=== PATIENT | male | born 1965 | race Caucasian/White ===

== ENCOUNTER → 2016-10-09 | Outpatient (CLI) | payer MEDICARE, BC ==
[~2016-10-09] MED LIST: ALLOPURINOL100 MG PO; BENAZEPRIL HCL20 MG PO; CALCITRIOL0.25 MCG PO; CARDIZEM CD240 MG PO; CARTIA XT300 MG PO; CATAPRES0.1 MG PO; DELFLEX IP; DELFLEX W/1.53000 ML PD; DIAZEPAM2 MG PO; DILTIAZEM 24HR300 MG PO; FLORASTOR250 MG PO; FUROSEMIDE20 MG PO; FUROSEMIDE80 MG PO; GENTAMICIN SULF30 G1 TP; LASIX20 MG PO; LASIX40 MG PO; LIDOCAINE700 MG TD; LIDODERM 5% P1 PATCH TD; MEDROL DOSEPAK4 MG PO; METRONIDAZOLE500 MG PO; NABI650T PO; NEPHRO-VITE,1 TABLET PO; ONDANSETRON HCL4 MG PO; OPANA ER7.5 MG PO; OXYCODONE HCL10 MG PO; OXYCODONE HCL5 MG PO; OXYCODONE5 MG PO; OXYCONTIN10 MG PO; OXYCONTIN15 MG PO; OXYMORPHONE HCL10 MG PO; OXYMORPHONE HCL30 MG PO; OXYMORPHONE HCL5 MG PO; RENVELA800 MG PO; SENSIPAR30 MG PO; SERTRALINE HCL50 MG PO; Sodium Bicarbonate PO; VELPHORO500 MG PO; VITAMIN D2000 INTUN PO; VITAMIN D22000 UNIT PO; VITAMIN D32000 UNI1 PO; XANAX0.125 MG PO; ZOFRAN4 MG PO; [UNRECOGNIZED DRUG - OTHER] IP
== END | disposition home or self-care (01) ==
LOC: CDC
DX: I51.7 Cardiomegaly (principal); Z01.810 Encounter for preprocedural cardiovascular examination
CPT/HCPCS: 93000

== ENCOUNTER 2016-10-10 06:35 | Day surgery (SDC) | payer OTHER, BC ==
[~2016-10-10] VITALS: Ht 177.8 cm; Wt 97.8 kg
[2016-10-10 07:16] VITALS: BP 122/65
[2016-10-10 08:38] LABS: HEMATOCRIT 29.1 % (38.0-50.0); MCH 31.2 PG (29.0-34.0); MCHC 33.3 G/DL (30.0-36.0); MCV 93.6 FL (86-99); MEAN PLAT.VOLUME 9.2 uM^3 (9.0-12.4); PLATELET COUNT 184 K/uL (156-360); RBC DIS.WIDTH-CV 13.6 % (11.8-14.6); RBC DIS.WIDTH-SD 46.1 % (39-53); RED BLOOD COUNT 3.11 M/uL (4.00-5.50); WHITE BLOOD COUNT 8.7 K/uL (4.1-10.2)
[2016-10-10 09:05] LABS: ANION GAP 11 MEQ/L (2-14); CHLORIDE 101 MEQ/L (99-109); GFR ESTIMATE (CALCULATED) 9 mL/min/; GLUCOSE 105 mg/dL (70-99); POTASSIUM 3.9 MEQ/L (3.7-5.4); SAMPLE HEMOLYSIS CHECK 0; SAMPLE ICTERIC CHECK 0; SAMPLE LIPEMIA CHECK 0; SODIUM 136 MEQ/L (136-147)
[2016-10-10 09:08] LABS: UREA NITROGEN (BUN) 103 mg/dL (9-23)
[2016-10-10 09:25] VITALS: BP 148/78
[2016-10-10 11:40] VITALS: BP 74/45
[2016-10-10 11:50] VITALS: BP 127/69
== END 2016-10-10 13:00 | disposition home or self-care (01) ==
LOC: SDC 06:35 → 2EASTP 06:37 → SDC 13:00 → 2EASTP 13:00 → SDC 16:10
PROVIDERS: Surgery
PROC: 0WWG43Z Revision of Infusion Device in Peritoneal Cavity, Percutaneous Endoscopic Approach (ICD-10-PCS; principal; 2016-10-10)
DX: T85.611A Breakdown (mechanical) of intraperitoneal dialysis catheter, initial encounter (principal); Y83.1 Surgical operation with implant of artificial internal device as the cause of abnormal reaction of the patient, or of later complication, without mention of misadventure at the time of the procedure; I12.0 Hypertensive chronic kidney disease with stage 5 chronic kidney disease or end stage renal disease; N18.6 End stage renal disease; Z99.2 Dependence on renal dialysis; F17.200 Nicotine dependence, unspecified, uncomplicated; M19.90 Unspecified osteoarthritis, unspecified site; Z96.659 Presence of unspecified artificial knee joint
CPT/HCPCS: 80048; 85027; C1750; G0378; J0131; J0330; J0690; J1170; J2250; J2405; J3010; J7040

== ENCOUNTER 2017-07-22 10:43 | Inpatient (IN) | payer OTHER, BC ==
[~2017-07-22] VITALS: Ht 177.8 cm; Wt 99.0 kg
[~2017-07-22 10:43] MED LIST changes: -DELFLEX IP; -GENTAMICIN SULF30 G1 TP; +GENTAMICIN SULF30 GM TP; -OXYCONTIN15 MG PO; -[UNRECOGNIZED DRUG - OTHER] IP; +[UNRECOGNIZED DRUG - OTHER] PD
[2017-07-22 11:49] LABS: BASOPHIL (%) 0.1 % (0-1); EOSINOPHIL (%) 0.9 % (0-5); EOSINOPHIL COUNT 0.1 K/uL (0-0.3); HEMATOCRIT 21.7 % (38.0-50.0); HEMOGLOBIN 7.6 G/DL (12.5-16.6); IMMATURE GRANULOCYTE (%) 1.1 % (0.0-0.7); LYMPHOCYTE (%) 8.5 % (15-42); LYMPHOCYTE COUNT 0.7 K/uL (1.0-2.8); MCH 33.5 PG (29.0-34.0); MCV 95.6 FL (86-99); MONOCYTE (%) 8.3 % (3-12); MONOCYTE COUNT 0.7 K/uL (0-0.8); NEUTROPHIL (%) 81.1 % (45-76); NEUTROPHIL COUNT 6.6 K/uL (1.8-6.4); PLATELET COUNT 195 K/uL (156-360); RBC DIS.WIDTH-CV 13.7 % (11.8-14.6); RBC DIS.WIDTH-SD 47.3 % (39-53); RED BLOOD COUNT 2.27 M/uL (4.00-5.50); WHITE BLOOD COUNT 8.1 K/uL (4.1-10.2)
[2017-07-22 11:54] LABS: INTER. NORMALIZED RATIO 1.1
[2017-07-22 11:57] LABS: PTT 24.3 SEC (25-37)
[2017-07-22 12:00] LABS: ALBUMIN 3.4 g/dL (3.2-4.8); CHLORIDE 97 mEq/L (99-109); POTASSIUM 4.3 mEq/L (3.7-5.4); SODIUM 130 mEq/L (136-147)
[2017-07-22 12:01] LABS: MAGNESIUM 2.4 mg/dL (1.3-2.7)
[2017-07-22 12:02] LABS: GLUCOSE 136 mg/dL (70-99); TOTAL PROTEIN 5.1 g/dL (6.4-8.3)
[2017-07-22 12:04] LABS: TOTAL BILIRUBIN 0.3 mg/dL (0.0-1.0)
[2017-07-22 12:06] LABS: ALKALINE PHOSPHATASE 122 IU/L (3-129); CREATININE 7.2 mg/dL (0.6-1.3); GFR ESTIMATE (CALCULATED) 9 mL/min/ (58.99-99999)
[2017-07-22 12:08] LABS: AST (GOT) 23 IU/L (2-34)
[2017-07-22 12:09] LABS: ALT (GPT) 43 IU/L (3-49); CREATINE KINASE 236 IU/L (1-294); LIPASE 25 U/L (1.0-51.0); TOTAL CK 236 IU/L (1-294); TROP-I INTERPRETATION NEGATIVE; TROPONIN-I 0.08 ng/mL (0.0-0.30); UREA NITROGEN (BUN) 163 mg/dL (9-23)
[2017-07-22 12:21] LABS: CK-MB 5.7 ng/mL (0.0-4.9); CKMB RELATIVE INDEX 2.4 (0.0-3.9)
[2017-07-22] MEDS ORDERED: NEPHRO-VITE,1 TABLET PO (12:21)
[2017-07-22] MEDS ORDERED: VELPHORO500 MG PO (12:23)
[2017-07-22 17:30] VITALS: BP 130/60
[2017-07-22 18:17] LABS: IRON 194 MCG/DL (35-150); TRANSFERRIN (TIBC) 168.5 mg/dL (215-380)
[2017-07-22 18:17] LABS: HEMOGLOBIN 6.3 G/DL (12.5-16.6); MCV 97.4 FL (86-99)
[2017-07-22 18:18] LABS: TRANSFERRIN SATUR. 115 % (20-55)
[2017-07-22 20:06] VITALS: BP 106/62
[2017-07-22 21:11] VITALS: BP 115/65
[2017-07-22 21:31] VITALS: BP 107/65
[2017-07-22 22:26] VITALS: BP 108/68
[2017-07-23] VITALS (8 sets, daily range): BP systolic 89–119; BP diastolic 51–77
[2017-07-23 01:11] LABS: HEMATOCRIT 20.9 % (38.0-50.0); HEMOGLOBIN 7.2 G/DL (12.5-16.6); MCV 93.7 FL (86-99)
[2017-07-23 09:13] LABS: HEMATOCRIT 20.5 % (38.0-50.0)
[2017-07-23 09:21] LABS: HEMOGLOBIN 6.9 G/DL (12.5-16.6)
[2017-07-23 09:46] LABS: ALBUMIN 2.8 G/DL (3.2-4.8); ALKALINE PHOSPHATASE 86 IU/L (3-129); ALT (GPT) 28 IU/L (3-49); AST (GOT) 16 IU/L (2-34); CHLORIDE 102 MEQ/L (99-109); CREATININE 6.8 MG/DL (0.6-1.3); GFR ESTIMATE (CALCULATED) 9 mL/min/ (58.99-99999); PHOSPHORUS 5.9 mg/dL (2.5-4.9); POTASSIUM 3.7 MEQ/L (3.7-5.4); TOTAL BILIRUBIN 0.3 MG/DL (0.0-1.0); TOTAL PROTEIN 4.5 G/DL (6.4-8.3)
[2017-07-23 09:52] LABS: GLUCOSE 97 mg/dL (70-99); SODIUM 138 MEQ/L (136-147); UREA NITROGEN (BUN) 148 mg/dL (9-23)
[2017-07-23 10:27] LABS: APPEARANCE CLEAR ((CLEAR)); BILIRUBIN NEGATIVE; BLOOD SMALL; COLOR STRAW ((YELLOW)); GLUCOSE (STRIP) 50; KETONES NEGATIVE; LEUKOCYTES NEGATIVE; NITRITE NEGATIVE; PROTEIN (STRIP) NEGATIVE; SPECIFIC GRAVITY 1.006 (1.000-1.030); UROBILINOGEN 0.2 MG/DL (0.2-1.0)
[2017-07-23 10:30] LABS: BACTERIA RARE /HPF; EPITHELIAL CELLS RARE /HPF; MUCUS TRACE /LPF; RED BLOOD CELLS 0-5 /HPF (0-5); UCUL ADDED? NO; WHITE BLOOD CELLS NONE SEEN /HPF (0-5)
[2017-07-23 14:45] LABS: HEMATOCRIT 22.8 % (38.0-50.0); HEMOGLOBIN 7.6 G/DL (12.5-16.6); MCH 31.7 PG (29.0-34.0); MCHC 33.3 G/DL (30.0-36.0); PLATELET COUNT 161 K/uL (156-360); RBC DIS.WIDTH-CV 15.5 % (11.8-14.6); RBC DIS.WIDTH-SD 53.9 % (39-53); WHITE BLOOD COUNT 6.8 K/uL (4.1-10.2)
[2017-07-23 18:19] LABS: HEMATOCRIT 22.9 % (38.0-50.0); HEMOGLOBIN 7.8 G/DL (12.5-16.6); MCV 94.2 FL (86-99)
[2017-07-24] VITALS (7 sets, daily range): BP systolic 109–129; BP diastolic 57–74
[2017-07-24 00:41] LABS: HEMATOCRIT 22.4 % (38.0-50.0); HEMOGLOBIN 7.8 G/DL (12.5-16.6); MCV 92.9 FL (86-99)
[2017-07-24 06:36] LABS: HEMATOCRIT 21.7 % (38.0-50.0); HEMOGLOBIN 7.3 G/DL (12.5-16.6); MCH 31.3 PG (29.0-34.0); MCHC 33.6 G/DL (30.0-36.0); MCV 93.1 FL (86-99); PLATELET COUNT 150 K/uL (156-360); RBC DIS.WIDTH-CV 15.9 % (11.8-14.6); RBC DIS.WIDTH-SD 53.6 % (39-53); RED BLOOD COUNT 2.33 M/uL (4.00-5.50); WHITE BLOOD COUNT 7.8 K/uL (4.1-10.2)
[2017-07-24 07:24] LABS: ALBUMIN 2.9 G/DL (3.2-4.8); CHLORIDE 104 MEQ/L (99-109); CREATININE 6.2 MG/DL (0.6-1.3); GFR ESTIMATE (CALCULATED) 10 mL/min/ (58.99-99999); GLUCOSE 101 mg/dL (70-99); PHOSPHORUS 5.7 mg/dL (2.5-4.9); POTASSIUM 3.4 MEQ/L (3.7-5.4); SODIUM 138 MEQ/L (136-147)
[2017-07-24 07:43] LABS: UREA NITROGEN (BUN) 129 mg/dL (9-23)
[2017-07-24 12:08] LABS: HEMATOCRIT 23.1 % (38.0-50.0); HEMOGLOBIN 7.8 G/DL (12.5-16.6); MCV 93.1 FL (86-99)
[2017-07-24 18:32] LABS: HEMATOCRIT 25.7 % (38.0-50.0); HEMOGLOBIN 8.7 G/DL (12.5-16.6); MCV 91.8 FL (86-99)
[2017-07-25] VITALS (23 sets, daily range): BP systolic 89–155; BP diastolic 52–95
[2017-07-25 00:36] LABS: HEMOGLOBIN 8.1 G/DL (12.5-16.6)
[2017-07-25 06:49] LABS: HEMATOCRIT 21.8 % (38.0-50.0); HEMOGLOBIN 7.4 G/DL (12.5-16.6); MCH 31.9 PG (29.0-34.0); MCHC 33.9 G/DL (30.0-36.0); PLATELET COUNT 135 K/uL (156-360); RBC DIS.WIDTH-CV 16.5 % (11.8-14.6); RBC DIS.WIDTH-SD 55.8 % (39-53); RED BLOOD COUNT 2.32 M/uL (4.00-5.50); WHITE BLOOD COUNT 8.4 K/uL (4.1-10.2)
[2017-07-25 07:41] LABS: ALBUMIN 2.8 G/DL (3.2-4.8); CHLORIDE 102 MEQ/L (99-109); CREATININE 5.7 MG/DL (0.6-1.3); GFR ESTIMATE (CALCULATED) 11 mL/min/ (58.99-99999); GLUCOSE 117 mg/dL (70-99); PHOSPHORUS 4.7 mg/dL (2.5-4.9); POTASSIUM 3.7 MEQ/L (3.7-5.4); SODIUM 138 MEQ/L (136-147)
[2017-07-25 07:43] LABS: UREA NITROGEN (BUN) 108 mg/dL (9-23)
[2017-07-25 12:04] LABS: HEMATOCRIT 19.5 % (38.0-50.0); MCV 92.4 FL (86-99)
[2017-07-25 12:05] LABS: HEMOGLOBIN 6.5 G/DL (12.5-16.6)
[2017-07-25 20:21] LABS: HEMATOCRIT 22.9 % (38.0-50.0); HEMOGLOBIN 7.8 G/DL (12.5-16.6); MCV 93.5 FL (86-99)
[2017-07-26] VITALS (25 sets, daily range): BP systolic 0–163; BP diastolic 0–121
[2017-07-26 02:11] LABS: HEMATOCRIT 26.1 % (38.0-50.0); HEMOGLOBIN 9.1 G/DL (12.5-16.6); MCH 31.6 PG (29.0-34.0); MCHC 34.9 G/DL (30.0-36.0); MCV 90.6 FL (86-99); PLATELET COUNT 131 K/uL (156-360); RBC DIS.WIDTH-CV 14.9 % (11.8-14.6); RBC DIS.WIDTH-SD 48.8 % (39-53); WHITE BLOOD COUNT 7.6 K/uL (4.1-10.2)
[2017-07-26 02:14] LABS: RED BLOOD COUNT 2.88 M/uL (4.00-5.50)
[2017-07-26 02:18] LABS: FIBRINOGEN 443 mg/dL (150-450)
[2017-07-26 02:20] LABS: PTT 25.1 SEC (25-37)
[2017-07-26 05:18] LABS: BASOPHIL (%) 0.3 % (0-1); EOSINOPHIL (%) 5.8 % (0-5); EOSINOPHIL COUNT 0.4 K/uL (0-0.3); HEMATOCRIT 26.5 % (38.0-50.0); HEMOGLOBIN 9.1 G/DL (12.5-16.6); IMMATURE GRANULOCYTE (%) 1.9 % (0.0-0.7); LYMPHOCYTE (%) 16.7 % (15-42); LYMPHOCYTE COUNT 1.2 K/uL (1.0-2.8); MCH 31.2 PG (29.0-34.0); MCHC 34.3 G/DL (30.0-36.0); MCV 90.8 FL (86-99); MONOCYTE (%) 8.4 % (3-12); MONOCYTE COUNT 0.6 K/uL (0-0.8); NEUTROPHIL (%) 66.9 % (45-76); PLATELET COUNT 119 K/uL (156-360); RBC DIS.WIDTH-CV 15.2 % (11.8-14.6); RBC DIS.WIDTH-SD 49.3 % (39-53); RED BLOOD COUNT 2.92 M/uL (4.00-5.50); WHITE BLOOD COUNT 7.4 K/uL (4.1-10.2)
[2017-07-26 05:57] LABS: ALBUMIN 2.6 G/DL (3.2-4.8); CHLORIDE 105 MEQ/L (99-109); CREATININE 5.5 MG/DL (0.6-1.3); GFR ESTIMATE (CALCULATED) 12 mL/min/ (58.99-99999); GLUCOSE 90 mg/dL (70-99); PHOSPHORUS 4.8 mg/dL (2.5-4.9); SODIUM 139 MEQ/L (136-147)
[2017-07-26 05:58] LABS: UREA NITROGEN (BUN) 107 mg/dL (9-23)
[2017-07-26 12:32] LABS: HEMATOCRIT 30.4 % (38.0-50.0); HEMOGLOBIN 10.3 G/DL (12.5-16.6); MCV 91.6 FL (86-99)
[2017-07-26 18:45] LABS: HEMATOCRIT 28.2 % (38.0-50.0); HEMOGLOBIN 9.6 G/DL (12.5-16.6); MCV 92.5 FL (86-99)
[2017-07-27] VITALS (17 sets, daily range): BP systolic 120–174; BP diastolic 68–98
[2017-07-27 01:07] LABS: HEMATOCRIT 27.4 % (38.0-50.0); HEMOGLOBIN 9.7 G/DL (12.5-16.6); MCH 32.3 PG (29.0-34.0); MCHC 35.4 G/DL (30.0-36.0); MCV 91.3 FL (86-99); PLATELET COUNT 151 K/uL (156-360); RBC DIS.WIDTH-CV 15.4 % (11.8-14.6); WHITE BLOOD COUNT 8.5 K/uL (4.1-10.2)
[2017-07-27 05:13] LABS: BASOPHIL (%) 0.1 % (0-1); EOSINOPHIL (%) 4.8 % (0-5); EOSINOPHIL COUNT 0.4 K/uL (0-0.3); HEMATOCRIT 27.2 % (38.0-50.0); HEMOGLOBIN 9.3 G/DL (12.5-16.6); IMMATURE GRANULOCYTE (%) 1.3 % (0.0-0.7); LYMPHOCYTE (%) 13.8 % (15-42); LYMPHOCYTE COUNT 1.1 K/uL (1.0-2.8); MCH 31.8 PG (29.0-34.0); MCHC 34.2 G/DL (30.0-36.0); MCV 93.2 FL (86-99); MONOCYTE (%) 7.6 % (3-12); MONOCYTE COUNT 0.6 K/uL (0-0.8); NEUTROPHIL (%) 72.4 % (45-76); NEUTROPHIL COUNT 5.6 K/uL (1.8-6.4); PLATELET COUNT 146 K/uL (156-360); RBC DIS.WIDTH-CV 15.5 % (11.8-14.6); RBC DIS.WIDTH-SD 51.2 % (39-53); RED BLOOD COUNT 2.92 M/uL (4.00-5.50); WHITE BLOOD COUNT 7.8 K/uL (4.1-10.2)
[2017-07-27 05:40] LABS: ALBUMIN 2.8 G/DL (3.2-4.8); CHLORIDE 106 MEQ/L (99-109); CREATININE 5.3 MG/DL (0.6-1.3); GFR ESTIMATE (CALCULATED) 12 mL/min/ (58.99-99999); GLUCOSE 96 mg/dL (70-99); PHOSPHORUS 4.6 mg/dL (2.5-4.9); POTASSIUM 3.6 MEQ/L (3.7-5.4); SODIUM 140 MEQ/L (136-147); UREA NITROGEN (BUN) 90 mg/dL (9-23)
[2017-07-27 05:41] LABS: CHLORIDE 108 MEQ/L (99-109); CREATININE 5.3 MG/DL (0.6-1.3); GFR ESTIMATE (CALCULATED) 12 mL/min/ (58.99-99999); GLUCOSE 96 mg/dL (70-99); POTASSIUM 3.6 MEQ/L (3.7-5.4); SODIUM 141 MEQ/L (136-147); UREA NITROGEN (BUN) 90 mg/dL (9-23)
[2017-07-27 12:16] LABS: HEMATOCRIT 29.1 % (38.0-50.0); HEMOGLOBIN 9.8 G/DL (12.5-16.6); MCV 92.7 FL (86-99)
[2017-07-28] VITALS: BP 125/60
[2017-07-28 02:00] VITALS: BP 123/65
[2017-07-28 04:00] VITALS: BP 162/94
[2017-07-28 06:00] VITALS: BP 116/61
[2017-07-28 06:01] LABS: BASOPHIL (%) 0.2 % (0-1); EOSINOPHIL (%) 3.1 % (0-5); EOSINOPHIL COUNT 0.3 K/uL (0-0.3); HEMATOCRIT 26.9 % (38.0-50.0); IMMATURE GRANULOCYTE (%) 1.3 % (0.0-0.7); LYMPHOCYTE (%) 9.7 % (15-42); MCH 31.1 PG (29.0-34.0); MCHC 33.5 G/DL (30.0-36.0); MCV 93.1 FL (86-99); MONOCYTE (%) 7.1 % (3-12); MONOCYTE COUNT 0.8 K/uL (0-0.8); NEUTROPHIL (%) 78.6 % (45-76); NEUTROPHIL COUNT 8.3 K/uL (1.8-6.4); PLATELET COUNT 163 K/uL (156-360); RBC DIS.WIDTH-CV 15.2 % (11.8-14.6); RBC DIS.WIDTH-SD 50.4 % (39-53); RED BLOOD COUNT 2.89 M/uL (4.00-5.50); WHITE BLOOD COUNT 10.6 K/uL (4.1-10.2)
[2017-07-28 06:28] LABS: CHLORIDE 107 MEQ/L (99-109); CREATININE 5.6 MG/DL (0.6-1.3); GFR ESTIMATE (CALCULATED) 11 mL/min/ (58.99-99999); GLUCOSE 102 mg/dL (70-99); POTASSIUM 3.8 MEQ/L (3.7-5.4); SODIUM 140 MEQ/L (136-147); UREA NITROGEN (BUN) 78 mg/dL (9-23)
[2017-07-28] MEDS ORDERED: PANTOPRAZOLE SO40 MG PO (10:15)
[2017-07-28] MEDS ORDERED: ULTRACET1 TABLET PO ×2 (10:16→10:21)
== END 2017-07-28 11:43 | disposition home or self-care (01) | DRG 377 ==
LOC: EME 10:43 → EDOF 14:20 → 5EAST 14:20 → 4WEST 14:20 → ENRESERV 14:21 → EDOF 14:50 → ENRESERV 14:54 → 5EAST 16:17 → ENRESERV 07-25 14:50 → 4WEST 07-25 15:59 → ENRESERV 07-27 17:32 → 4WEST 07-27 17:32
PROVIDERS: Emergency Medicine; Hospitalist; Internal Medicine; Internal Medicine Critical Care Medicine; Internal Medicine Gastroenterology; Physician Assistant Medical; Surgery
DX: K25.4 Chronic or unspecified gastric ulcer with hemorrhage (principal); K57.31 Diverticulosis of large intestine without perforation or abscess with bleeding; D62 Acute posthemorrhagic anemia; E87.1 Hypo-osmolality and hyponatremia; E87.2 Acidosis; J20.8 Acute bronchitis due to other specified organisms; I12.0 Hypertensive chronic kidney disease with stage 5 chronic kidney disease or end stage renal disease; N18.6 End stage renal disease; D63.1 Anemia in chronic kidney disease; D69.6 Thrombocytopenia, unspecified; E83.39 Other disorders of phosphorus metabolism; M10.9 Gout, unspecified; E03.9 Hypothyroidism, unspecified; L28.1 Prurigo nodularis; N25.81 Secondary hyperparathyroidism of renal origin; E55.9 Vitamin D deficiency, unspecified; F32.9 Major depressive disorder, single episode, unspecified; F41.9 Anxiety disorder, unspecified; M87.9 Osteonecrosis, unspecified; K29.80 Duodenitis without bleeding; D17.5 Benign lipomatous neoplasm of intra-abdominal organs; K21.9 Gastro-esophageal reflux disease without esophagitis; K64.8 Other hemorrhoids; K63.5 Polyp of colon; I95.9 Hypotension, unspecified; F17.200 Nicotine dependence, unspecified, uncomplicated; Z96.642 Presence of left artificial hip joint; Z88.6 Allergy status to analgesic agent; Z99.2 Dependence on renal dialysis; Q78.0 Osteogenesis imperfecta; Z76.82 Awaiting organ transplant status
CPT/HCPCS: 71045; 80048; 80048 91; 80053; 80069; 81003; 82550; 82553; 83540; 83605; 83690; 83735; 83880; 84100; 84466; 84484; 85014; 85018; 85025; 85027; 85384; 85610; 85730; 86850; 86900; 86901; 86920; 87040; 87641; 88305; 88342 TC; 93005; 99281; 99285; C9113; J0881; J2250; J2405; J3010; J7030; J7050; P9016; P9040; S0028

== ENCOUNTER 2017-08-24 19:16 | Inpatient (IN) | payer OTHER, BC ==
[~2017-08-24] VITALS: Ht 165.1 cm; Wt 95.4 kg
[~2017-08-24 19:16] MED LIST changes: +PANTOPRAZOLE SO40 MG PO; +ULTRACET1 TABLET PO
[2017-08-24 19:48] LABS: HEMATOCRIT 25.8 % (38.0-50.0); HEMOGLOBIN 8.6 G/DL (12.5-16.6); MCH 31.2 PG (29.0-34.0); MCHC 33.3 G/DL (30.0-36.0); MCV 93.5 FL (86-99); PLATELET COUNT 294 K/uL (156-360); RBC DIS.WIDTH-CV 14.5 % (11.8-14.6); RBC DIS.WIDTH-SD 49.8 % (39-53); RED BLOOD COUNT 2.76 M/uL (4.00-5.50)
[2017-08-24 19:57] LABS: CHLORIDE 99 mEq/L (99-109); POTASSIUM 4.3 mEq/L (3.7-5.4); SODIUM 136 mEq/L (136-147)
[2017-08-24 19:58] LABS: GLUCOSE 106 mg/dL (70-99)
[2017-08-24 20:02] LABS: CREATININE 6.1 mg/dL (0.6-1.3); GFR ESTIMATE (CALCULATED) 10 mL/min/ (58.99-99999)
[2017-08-24 20:03] LABS: UREA NITROGEN (BUN) 99 mg/dL (9-23)
[2017-08-24 20:18] LABS: TROP-I INTERPRETATION NEGATIVE; TROPONIN-I 0.03 ng/mL (0.0-0.30)
[2017-08-24] MEDS ORDERED: [UNRECOGNIZED DRUG - OTHER] IP (21:41)
[2017-08-24] MEDS ORDERED: PROTONIX40 MG PO (21:45)
[2017-08-24] MEDS ORDERED: MIRALAX255 GM PO (21:46)
[2017-08-24] MEDS ORDERED: KRATOM PO (21:48)
[2017-08-25 00:29] LABS: BASOPHIL (%) 0.2 % (0-1); EOSINOPHIL (%) 2.5 % (0-5); EOSINOPHIL COUNT 0.4 K/uL (0-0.3); HEMATOCRIT 24.4 % (38.0-50.0); HEMOGLOBIN 8.1 G/DL (12.5-16.6); IMMATURE GRANULOCYTE (%) 1.2 % (0.0-0.7); LYMPHOCYTE COUNT 1.1 K/uL (1.0-2.8); MCH 30.8 PG (29.0-34.0); MCHC 33.2 G/DL (30.0-36.0); MCV 92.8 FL (86-99); NEUTROPHIL (%) 83.1 % (45-76); NEUTROPHIL COUNT 13.1 K/uL (1.8-6.4); PLATELET COUNT 252 K/uL (156-360); RBC DIS.WIDTH-CV 14.3 % (11.8-14.6); RBC DIS.WIDTH-SD 48.1 % (39-53); RED BLOOD COUNT 2.63 M/uL (4.00-5.50); WHITE BLOOD COUNT 15.8 K/uL (4.1-10.2)
[2017-08-25 00:42] LABS: ALBUMIN 3.1 g/dL (3.2-4.8)
[2017-08-25 00:43] LABS: CHLORIDE 99 mEq/L (99-109); POTASSIUM 4.6 mEq/L (3.7-5.4); SODIUM 134 mEq/L (136-147)
[2017-08-25 00:45] LABS: GLUCOSE 95 mg/dL (70-99); PTT 27.1 SEC (25-37); TOTAL PROTEIN 6.2 g/dL (6.4-8.3)
[2017-08-25 00:47] LABS: TOTAL BILIRUBIN 0.3 mg/dL (0.0-1.0)
[2017-08-25 00:48] LABS: ALKALINE PHOSPHATASE 141 IU/L (3-129)
[2017-08-25 00:49] LABS: CREATININE 5.9 mg/dL (0.6-1.3); GFR ESTIMATE (CALCULATED) 11 mL/min/ (58.99-99999)
[2017-08-25 00:50] LABS: AST (GOT) 13 IU/L (2-34); UREA NITROGEN (BUN) 102 mg/dL (9-23)
[2017-08-25 00:51] LABS: ALT (GPT) 15 IU/L (3-49)
[2017-08-25 00:52] LABS: LIPASE 18 U/L (1.0-51.0)
[2017-08-25 01:10] VITALS: BP 154/85
[2017-08-25 03:26] LABS: ERTH.SED.RATE 52 MM/HR (0-20)
[2017-08-25 05:00] VITALS: BP 121/75
[2017-08-25 06:03] LABS: TROP-I INTERPRETATION NEGATIVE; TROPONIN-I 0.04 ng/mL (0.0-0.30)
[2017-08-25 06:08] LABS: HDL CHOLESTEROL 34 MG/DL (Desirable>=40); LDL CHOLESTEROL 103 mg/dL (Desirable<100); NON-HDL CHOLESTEROL 125 mg/dL (Desirable<160); TOTAL CHOLESTEROL 159 mg/dL (Desirable<200); TRIGLYCERIDES 112 MG/DL (Normal: <150)
[2017-08-25 09:24] VITALS: BP 106/71
[2017-08-25 12:23] VITALS: BP 136/75
[2017-08-25 12:45] LABS: TROP-I INTERPRETATION NEGATIVE; TROPONIN-I 0.05 ng/mL (0.0-0.30)
[2017-08-25 15:12] LABS: IRON 26 MCG/DL (35-150); TRANSFERRIN (TIBC) 165.1 mg/dL (215-380); TRANSFERRIN SATUR. 16 % (20-55)
[2017-08-25 16:02] LABS: FERRITIN 543 NG/ML (22-322)
[2017-08-25 19:45] VITALS: BP 127/71
[2017-08-26 00:20] VITALS: BP 103/62
[2017-08-26 05:21] VITALS: BP 107/63
[2017-08-26 05:27] LABS: HEMATOCRIT 24.4 % (38.0-50.0); HEMOGLOBIN 7.9 G/DL (12.5-16.6); MCH 30.4 PG (29.0-34.0); MCHC 32.4 G/DL (30.0-36.0); MCV 93.8 FL (86-99); PLATELET COUNT 292 K/uL (156-360); RBC DIS.WIDTH-CV 14.5 % (11.8-14.6); RBC DIS.WIDTH-SD 49.2 % (39-53); WHITE BLOOD COUNT 12.2 K/uL (4.1-10.2)
[2017-08-26 05:48] LABS: ALBUMIN 2.9 G/DL (3.2-4.8); ALKALINE PHOSPHATASE 120 IU/L (3-129); ALT (GPT) 16 IU/L (3-49); AST (GOT) 19 IU/L (2-34); CHLORIDE 97 MEQ/L (99-109); GFR ESTIMATE (CALCULATED) 11 mL/min/ (58.99-99999); GLUCOSE 95 mg/dL (70-99); SODIUM 135 MEQ/L (136-147); TOTAL BILIRUBIN 0.3 MG/DL (0.0-1.0); TOTAL PROTEIN 5.5 G/DL (6.4-8.3); UREA NITROGEN (BUN) 83 mg/dL (9-23)
[2017-08-26 07:40] VITALS: BP 104/66
[2017-08-26 12:32] VITALS: BP 124/77
[2017-08-26 18:35] VITALS: BP 123/73
[2017-08-26 20:09] VITALS: BP 122/76
[2017-08-27 00:11] VITALS: BP 129/68
[2017-08-27 07:02] VITALS: BP 132/76
[2017-08-27 11:45] VITALS: BP 128/80
[2017-08-27] MEDS ORDERED: LOPRESSOR25 MG PO (12:02)
== END 2017-08-27 14:58 | disposition home or self-care (01) | DRG 444 ==
LOC: EME 19:16 → 4EAST 23:54 → EDOF 23:54 → ENRESERV 08-25 00:01 → 4EAST 08-25 01:11 → ENRESERV 08-26 20:15 → 5EAST 08-26 23:11 → ENPENDDIS 08-27 → 5EAST 08-27 14:58
PROVIDERS: Hospitalist; Physician Assistant Medical
DX: K83.1 Obstruction of bile duct (principal); K29.80 Duodenitis without bleeding; K83.8 Other specified diseases of biliary tract; R65.10 Systemic inflammatory response syndrome (SIRS) of non-infectious origin without acute organ dysfunction; E87.2 Acidosis; I12.0 Hypertensive chronic kidney disease with stage 5 chronic kidney disease or end stage renal disease; N18.6 End stage renal disease; Z99.2 Dependence on renal dialysis; Z76.82 Awaiting organ transplant status; D17.5 Benign lipomatous neoplasm of intra-abdominal organs; K57.31 Diverticulosis of large intestine without perforation or abscess with bleeding; K25.9 Gastric ulcer, unspecified as acute or chronic, without hemorrhage or perforation; K64.8 Other hemorrhoids; N25.81 Secondary hyperparathyroidism of renal origin; E55.9 Vitamin D deficiency, unspecified; R18.8 Other ascites; I71.2 Thoracic aortic aneurysm, without rupture; Q78.0 Osteogenesis imperfecta; M87.012 Idiopathic aseptic necrosis of left shoulder; M87.011 Idiopathic aseptic necrosis of right shoulder; M87.051 Idiopathic aseptic necrosis of right femur; M25.551 Pain in right hip; D63.1 Anemia in chronic kidney disease; E83.119 Hemochromatosis, unspecified; E03.9 Hypothyroidism, unspecified; E78.5 Hyperlipidemia, unspecified; K21.9 Gastro-esophageal reflux disease without esophagitis; L28.1 Prurigo nodularis; M10.9 Gout, unspecified; R97.20 Elevated prostate specific antigen [PSA]; M19.90 Unspecified osteoarthritis, unspecified site; N40.0 Benign prostatic hyperplasia without lower urinary tract symptoms; F32.9 Major depressive disorder, single episode, unspecified; F41.9 Anxiety disorder, unspecified; Z82.49 Family history of ischemic heart disease and other diseases of the circulatory system; Z96.642 Presence of left artificial hip joint; E66.9 Obesity, unspecified; Z87.891 Personal history of nicotine dependence; Z68.34 Body mass index [BMI] 34.0-34.9, adult
CPT/HCPCS: 71046; 71275; 74174; 74181; 74330; 80048; 80053; 80061; 81003; 82728; 83540; 83605; 83690; 84466; 84484; 85025; 85027; 85610; 85652; 85730; 87081; 88108; 88305; 93005; 99281; 99285; C1757; J1100; J1644; J2270; J2405; J2543; J2710; J3010; J7050; J7120

== ENCOUNTER 2017-09-04 21:02 | Inpatient (IN) | payer OTHER, BC ==
[~2017-09-04] VITALS: Ht 177.8 cm; Wt 99.3 kg
[~2017-09-04 21:02] MED LIST changes: +KRATOM PO; +LOPRESSOR25 MG PO; +MIRALAX255 GM PO; +PROTONIX40 MG PO; +[UNRECOGNIZED DRUG - OTHER] IP
[2017-09-04 21:54] LABS: BASOPHIL (%) 0.3 % (0-1); EOSINOPHIL (%) 3.1 % (0-5); EOSINOPHIL COUNT 0.5 K/uL (0-0.3); HEMATOCRIT 24.9 % (38.0-50.0); HEMOGLOBIN 8.2 G/DL (12.5-16.6); IMMATURE GRANULOCYTE (%) 1.3 % (0.0-0.7); LYMPHOCYTE (%) 7.4 % (15-42); LYMPHOCYTE COUNT 1.1 K/uL (1.0-2.8); MCH 31.2 PG (29.0-34.0); MCHC 32.9 G/DL (30.0-36.0); MCV 94.7 FL (86-99); MONOCYTE (%) 7.6 % (3-12); MONOCYTE COUNT 1.1 K/uL (0-0.8); NEUTROPHIL (%) 80.3 % (45-76); NEUTROPHIL COUNT 11.5 K/uL (1.8-6.4); PLATELET COUNT 279 K/uL (156-360); RBC DIS.WIDTH-CV 15.1 % (11.8-14.6); RED BLOOD COUNT 2.63 M/uL (4.00-5.50); WHITE BLOOD COUNT 14.3 K/uL (4.1-10.2)
[2017-09-04 22:02] LABS: ALBUMIN 3.1 g/dL (3.2-4.8)
[2017-09-04 22:03] LABS: CHLORIDE 100 mEq/L (99-109); POTASSIUM 3.9 mEq/L (3.7-5.4); SODIUM 135 mEq/L (136-147)
[2017-09-04 22:04] LABS: PTT 27.8 SEC (25-37)
[2017-09-04 22:05] LABS: GLUCOSE 113 mg/dL (70-99); TOTAL PROTEIN 6.2 g/dL (6.4-8.3)
[2017-09-04 22:07] LABS: TOTAL BILIRUBIN 0.3 mg/dL (0.0-1.0)
[2017-09-04 22:08] LABS: ALKALINE PHOSPHATASE 134 IU/L (3-129)
[2017-09-04 22:09] LABS: CREATININE 6.8 mg/dL (0.6-1.3); GFR ESTIMATE (CALCULATED) 9 mL/min/ (58.99-99999)
[2017-09-04 22:10] LABS: AST (GOT) 14 IU/L (2-34); UREA NITROGEN (BUN) 86 mg/dL (9-23)
[2017-09-04 22:11] LABS: ALT (GPT) 15 IU/L (3-49)
[2017-09-04 22:14] LABS: TROP-I INTERPRETATION NEGATIVE; TROPONIN-I 0.05 ng/mL (0.0-0.30)
[2017-09-04] MEDS ORDERED: PROZAC10 MG PO (23:18)
[2017-09-04] MEDS ORDERED: VITAMIN D32000 UNI1 PO (23:18)
[2017-09-05] VITALS (7 sets, daily range): BP systolic 104–127; BP diastolic 64–74
[2017-09-05 03:10] LABS: TROP-I INTERPRETATION NEGATIVE; TROPONIN-I 0.17 ng/mL (0.0-0.30)
[2017-09-05 05:19] LABS: HEMATOCRIT 23.1 % (38.0-50.0); HEMOGLOBIN 7.5 G/DL (12.5-16.6); MCH 31.1 PG (29.0-34.0); MCHC 32.5 G/DL (30.0-36.0); MCV 95.9 FL (86-99); PLATELET COUNT 276 K/uL (156-360); RBC DIS.WIDTH-CV 15.3 % (11.8-14.6); RBC DIS.WIDTH-SD 52.1 % (39-53); RED BLOOD COUNT 2.41 M/uL (4.00-5.50); WHITE BLOOD COUNT 13.2 K/uL (4.1-10.2)
[2017-09-05 05:59] LABS: CHLORIDE 101 MEQ/L (99-109); CREATININE 6.1 MG/DL (0.6-1.3); GFR ESTIMATE (CALCULATED) 10 mL/min/ (58.99-99999); GLUCOSE 110 mg/dL (70-99); POTASSIUM 4.2 MEQ/L (3.7-5.4); SODIUM 136 MEQ/L (136-147); UREA NITROGEN (BUN) 77 mg/dL (9-23)
[2017-09-05 08:19] LABS: THYROTROPIN (TSH) 2.3 MIU/L (0.4-5.5)
[2017-09-05 14:06] LABS: IRON 31 MCG/DL (35-150); TRANSFERRIN (TIBC) 138.9 mg/dL (215-380); TRANSFERRIN SATUR. 22 % (20-55)
[2017-09-06 05:30] VITALS: BP 122/64
[2017-09-06 06:25] LABS: TROP-I INTERPRETATION NEGATIVE; TROPONIN-I 0.14 ng/mL (0.0-0.30)
[2017-09-06 08:39] VITALS: BP 116/71
[2017-09-06 10:12] LABS: HEMATOCRIT 24.3 % (38.0-50.0); HEMOGLOBIN 7.9 G/DL (12.5-16.6); MCH 30.9 PG (29.0-34.0); MCHC 32.5 G/DL (30.0-36.0); MCV 94.9 FL (86-99); PLATELET COUNT 284 K/uL (156-360); RBC DIS.WIDTH-CV 15.6 % (11.8-14.6); RBC DIS.WIDTH-SD 53.1 % (39-53); RED BLOOD COUNT 2.56 M/uL (4.00-5.50); WHITE BLOOD COUNT 13.2 K/uL (4.1-10.2)
[2017-09-06 11:06] LABS: CHLORIDE 97 MEQ/L (99-109); CREATININE 5.6 MG/DL (0.6-1.3); GFR ESTIMATE (CALCULATED) 11 mL/min/ (58.99-99999); GLUCOSE 108 mg/dL (70-99); POTASSIUM 3.9 MEQ/L (3.7-5.4); SODIUM 135 MEQ/L (136-147); UREA NITROGEN (BUN) 73 mg/dL (9-23)
[2017-09-06 20:48] VITALS: BP 133/78
[2017-09-07 01:15] VITALS: BP 112/73
[2017-09-07 05:30] VITALS: BP 115/72
[2017-09-07 05:38] LABS: BASOPHIL (%) 0.3 % (0-1); EOSINOPHIL (%) 5.1 % (0-5); EOSINOPHIL COUNT 0.7 K/uL (0-0.3); HEMATOCRIT 23.9 % (38.0-50.0); HEMOGLOBIN 7.9 G/DL (12.5-16.6); IMMATURE GRANULOCYTE (%) 0.9 % (0.0-0.7); LYMPHOCYTE (%) 10.7 % (15-42); LYMPHOCYTE COUNT 1.5 K/uL (1.0-2.8); MCH 30.9 PG (29.0-34.0); MCHC 33.1 G/DL (30.0-36.0); MCV 93.4 FL (86-99); MONOCYTE (%) 6.8 % (3-12); NEUTROPHIL (%) 76.2 % (45-76); PLATELET COUNT 313 K/uL (156-360); RBC DIS.WIDTH-CV 15.2 % (11.8-14.6); RBC DIS.WIDTH-SD 52.1 % (39-53); RED BLOOD COUNT 2.56 M/uL (4.00-5.50); WHITE BLOOD COUNT 14.4 K/uL (4.1-10.2)
[2017-09-07 05:55] LABS: CHLORIDE 99 MEQ/L (99-109); GFR ESTIMATE (CALCULATED) 11 mL/min/ (58.99-99999); GLUCOSE 106 mg/dL (70-99); SODIUM 136 MEQ/L (136-147); UREA NITROGEN (BUN) 76 mg/dL (9-23)
[2017-09-07 08:09] VITALS: BP 129/69
[2017-09-07 14:02] VITALS: BP 116/69
[2017-09-07 20:08] VITALS: BP 104/71
[2017-09-08 00:52] VITALS: BP 90/54
[2017-09-08 03:25] VITALS: BP 104/68
[2017-09-08 08:30] VITALS: BP 107/60
[2017-09-08 09:34] LABS: HEMATOCRIT 25.1 % (38.0-50.0); HEMOGLOBIN 8.2 G/DL (12.5-16.6); MCH 30.5 PG (29.0-34.0); MCHC 32.7 G/DL (30.0-36.0); MCV 93.3 FL (86-99); PLATELET COUNT 337 K/uL (156-360); RBC DIS.WIDTH-CV 15.2 % (11.8-14.6); RBC DIS.WIDTH-SD 51.1 % (39-53); RED BLOOD COUNT 2.69 M/uL (4.00-5.50); WHITE BLOOD COUNT 15.6 K/uL (4.1-10.2)
[2017-09-08 09:59] LABS: CHLORIDE 96 MEQ/L (99-109); CREATININE 6.2 MG/DL (0.6-1.3); GFR ESTIMATE (CALCULATED) 10 mL/min/ (58.99-99999); GLUCOSE 113 mg/dL (70-99); POTASSIUM 3.9 MEQ/L (3.7-5.4); SODIUM 134 MEQ/L (136-147); UREA NITROGEN (BUN) 80 mg/dL (9-23)
[2017-09-08 12:13] VITALS: BP 110/52
[2017-09-08] MEDS ORDERED: SENNA8.6 MG PO (14:00)
[2017-09-08] MEDS ORDERED: COLACE100 MG PO (14:01)
== END 2017-09-08 16:53 | disposition home or self-care (01) | DRG 314 ==
LOC: EME 21:02 → EDOF 23:12 → 4EAST 23:12 → ENRESERV 23:12 → 4EAST 09-05 00:19 → ENPENDDIS 09-08 → 4EAST 09-08 16:53
PROVIDERS: Emergency Medicine; Internal Medicine; Internal Medicine Cardiovascular Disease; Physician Assistant
DX: I31.3 Pericardial effusion (noninflammatory) (principal); N18.6 End stage renal disease; I48.92 Unspecified atrial flutter; I13.11 Hypertensive heart and chronic kidney disease without heart failure, with stage 5 chronic kidney disease, or end stage renal disease; F33.9 Major depressive disorder, recurrent, unspecified; J98.11 Atelectasis; N25.81 Secondary hyperparathyroidism of renal origin; I47.1 Supraventricular tachycardia; Q78.0 Osteogenesis imperfecta; J90 Pleural effusion, not elsewhere classified; E78.5 Hyperlipidemia, unspecified; I48.91 Unspecified atrial fibrillation; D63.1 Anemia in chronic kidney disease; E03.9 Hypothyroidism, unspecified; F41.9 Anxiety disorder, unspecified; K21.9 Gastro-esophageal reflux disease without esophagitis; K59.00 Constipation, unspecified; Z96.642 Presence of left artificial hip joint; N40.0 Benign prostatic hyperplasia without lower urinary tract symptoms; I95.9 Hypotension, unspecified; N26.9 Renal sclerosis, unspecified; I32 Pericarditis in diseases classified elsewhere; Z99.2 Dependence on renal dialysis; Z88.6 Allergy status to analgesic agent; Z87.891 Personal history of nicotine dependence
CPT/HCPCS: 71045; 74018; 80048; 80053; 81003; 83540; 84443; 84466; 84484; 85025; 85027; 85610; 85730; 87040; 93005; 93306; 99281; 99285; J0881; J7030